=== PATIENT | male | born 1940 | race Caucasian/White ===

== ENCOUNTER 2017-01-02 05:14 | Day surgery (SDC) | payer BC ==
[2016-12-31 16:45] LABS: BASOPHILS 0.3 %; BASOPHILS ABSOLUTE 0.02 10/3/uL (0.0-0.16); EOSINOPHILS 1.4 %; EOSINOPHILS ABSOLUTE 0.09 10/3/uL (0.0-0.53); HEMATOCRIT 47.1 % (40.0-51.0); HEMOGLOBIN 15.7 g/dL (13.6-17.8); IMMATURE GRANULOCYTES 0.2 %; IMMATURE GRANULOCYTES ABSOLUTE 0.01 10/3/uL (0.0-0.11); LYMPHOCYTES 23.6 %; LYMPHOCYTES ABSOLUTE 1.47 10/3/uL (0.67-4.30); MEAN CORPUS HGB CONC 33.3 g/dL (32.0-36.0); MEAN CORPUSCULAR HEMOGLOB 29.8 pg (26.0-34.0); MEAN CORPUSCULAR VOLUME 89.5 fL (80-100); MEAN PLATELET VOLUME 10.7 fL (9.2-13.0); MONOCYTES 9.2 %; MONOCYTES ABSOLUTE 0.57 10/3/uL (0.21-1.20); NEUTROPHILS 65.3 %; NEUTROPHILS ABSOLUTE 4.06 10/3/uL (2.02-8.40); PLATELET COUNT 156 10/3/uL (150-400); RBC DISTRIBUTION WIDTH 14.1 % (12.0-16.0); RED CELL COUNT 5.26 10/6/uL (4.7-6.1); WHITE BLOOD CELLS 6.2 10/3/uL (4.5-10.5)
[2016-12-31 17:05] LABS: A/G RATIO 1.4 (0.7-1.9); ALBUMIN 3.8 G/DL (3.5-5.0); ALKALINE PHOSPHATASE 76 U/L (45-117); BUN (BLOOD UREA NITROGEN) 17 MG/DL (6-23); CALCIUM, SERUM 8.8 MG/DL (8.5-10.4); CHLORIDE, SERUM 106 MMOL/L (96-112); CO2 (CARBON DIOXIDE) 25 MMOL/L (24-34); CREATININE 0.93 MG/DL (0.70-1.30); GFR AFRICAN AMERICAN 93 ML/MIN (>=60); GFR NON AFRICAN AMERICAN 81 ML/MIN (>=60); GLOBULIN 2.8 G/DL (2.5-4.1); GLUCOSE, SERUM 110 MG/DL (60-99); POTASSIUM, SERUM 4.5 MMOL/L (3.5-5.3); SGOT(AST) 18 U/L (5-40); SGPT(ALT) 28 U/L (5-65); SODIUM, SERUM 141 MMOL/L (135-148); TOTAL BILIRUBIN 0.4 MG/DL (0-1.2); TOTAL PROTEIN 6.6 G/DL (6.0-8.5)
[~2017-01-02] VITALS: Ht 179.1 cm; Wt 129.3 kg
--- NOTE | ~2017-01-02 | OP ---
Record Of Operation [facility] [address] [place]. [address] NAME: RAFA BOYD : 44 STATUS : REG [facility]#: [id number] AGE: 76 ADM/REG DATE : 01/02/17 MR#: [id number] REPORT SERV DATE: 01/02/17 DICTATED BY: LIMA MARIE III DATE: 01/02/17 REPORT STATUS : Draft TRANSCRIBED BY: MODL DATE: 01/02/17 DATE OF PROCEDURE: 01/02/2017 PREOPERATIVE DIAGNOSIS: Biopsy-proven sarcoma of the left forehead. POSTOPERATIVE DIAGNOSIS: Biopsy-proven sarcoma of the left forehead. PROCEDURE: Wide local resection of sarcoma of the left forehead. SURGEON: Lima Marie M.D. ANESTHESIA: General with intubation. COMPLICATIONS: None. ESTIMATED BLOOD LOSS: Less than 5 mL. SPECIMENS: Sarcoma from left forehead and revised deep margin. DRAINS: None. LAP AND SPONGE COUNT: Correct x3. BRIEF HISTORY: This 76-year-old male presented with a biopsy-proven sarcoma of the left forehead. It was felt that wide local resection of this malignancy was indicated. This procedure, the risks, benefits, and alternatives, including but not limited to the risk for bleeding, infection, pain, swelling, scarring, deformity to the area, seroma formation, hematoma formation, nerve injury, chronic paresthesia, pain, numbness, neuralgia or neuroma, facial nerve injury, muscle weakness or paralysis which could be permanent muscles of the face, wound failure, wound dehiscence, possible need to return for wider excision, and unforeseen complications including deep venous thrombosis, pulmonary embolus, myocardial infarction, stroke, pneumonia, and were explained to the patient prior to the surgery. His questions were answered. He understood the risks and agreed to the surgery as planned. DESCRIPTION OF PROCEDURE: After being properly identified and after discussing the risks of surgery with the patient and family again in the preoperative area, and after identifying the lesion of concern with him and marking with a skin marker in the preoperative area, the patient was taken to the operating room and placed in the supine position on the operating room table. General anesthesia was administered. He was intubated without difficulty. The left forehead was prepped and draped sterilely in the usual fashion. After an appropriate "time-out" per JCAHO standards, an elliptical shaped horizontally oriented incision was made centered around the neoplasm. The incision was made so as to have at least a one-half to one centimeter margin around the tumor. The incision was continued through the subcutaneous tissue. The entire block of tissue was resected. At no point any neurovascular structures were encountered or injured. The specimen was oriented with sutures and sent to Pathology. The peripheral margins were all clear, but the deep margin was involved. Record Of Operation [address] [address] NAME: RAFA BOYD : 44 STATUS : REG [facility] PAT#: [id number] AGE: 76 ADM/REG DATE : 01/02/17 MR#: [id number] REPORT SERV DATE: 01/02/17 DICTATED BY: LIMA MARIE III DATE: 01/02/17 REPORT STATUS : Draft TRANSCRIBED BY: RAMÓN DATE: 01/02/17 For this reason, the deep margin was excised. This was labeled as a revised deep margin. The tissue was excised down to the skull. It was not possible to resect this deeper. The true margin was marked with ink. This was sent as revised deep margin to permanent pathology. Using sharp dissection, the skin and subcutaneous tissue around the defect was mobilized extensively to allow for closure of the wound. Hemostasis was assured. The subcutaneous tissue was closed with interrupted 3-0 Vicryl suture. The skin was closed with a running subcuticular 4-0 Monocryl stitch. The incision was injected with 0.5% Marcaine. Dermabond was applied. Anesthesia was reversed, and the patient was taken to the recovery room in stable condition. He tolerated the procedure well. His family was informed the results of the surgery. The patient will be discharged when stable and comfortable. His family was advised to keep the wound clean and dry for 48 hours, that he should not drive for two to three days after surgery or while using narcotics and that he should resume his usual medications. He was asked to return in two weeks for followup if any fever, chills, wound drainage, or other problems prior to that time. He was given a prescription for Percocet 7.5 one t.i.d., #12, as needed for pain, which he was advised not to use while driving. He was advised to monitor his glucose carefully for the next several days. RHJ/MODL Lima Marie III, M.D. / [id number] CC: Pascual Talbot III, MD
--- NOTE | ~2017-01-02 | PREOPHP ---
PreOp History and Physical [address] [place]. [address] NAME: RAFA BOYD : 44 STATUS : REG [facility]#: [id number] AGE: 76 ADM/REG DATE : 01/02/17 MR#: [id number] REPORT SERV DATE: 01/02/17 DICTATED BY: LIMA MARIE III DATE: 12/24/16 REPORT STATUS : Draft TRANSCRIBED BY: RAMÓN DATE: 12/24/16 HISTORY OF PRESENT ILLNESS: This 76-year-old male comes to the operating room for wide local resection of a biopsy-proven malignant sarcoma of the forehead. The patient complains of a nodular lesion over his left forehead. He noticed this several months ago. 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 PAST MEDICAL HISTORY: 1. Diabetes mellitus. 2. Hyperlipidemia. 3. Osteoarthritis. 4. Asthma. 5. Gastroesophageal reflux disease. 6. Obesity. 7. History of tobacco abuse. MEDICATIONS: Actos, metformin, nabumetone, aspirin, Zantac, Depo-Testosterone, Flomax, Flonase, potassium, Avodart, lisinopril, Lipitor. FAMILY HISTORY: Positive for heart disease. SOCIAL HISTORY: The patient has history of tobacco abuse. No history of alcohol use. He is . He is self-employed. ALLERGIES: NONE. OBJECTIVE: GENERAL: This is a large obese male, in no acute distress. He is alert oriented x3. VITAL SIGNS: Blood pressure 148/69, pulse 77, temperature 97.4. HEENT: Remarkable for 1-2 cm poorly defined nodular subcutaneous mass over the left forehead. NECK: Normal with no adenopathy. Supraclavicular area is normal with no adenopathy. LUNGS: Clear. CARDIAC: Normal. ABDOMEN: Soft. Nontender. 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 ASSESSMENT: 1. A 76-year-old male with biopsy-proven sarcoma of the left forehead. 2. Hyperlipidemia. 3. Diabetes mellitus. 4. Osteoarthritis. 5. Tobacco abuse. 6. Probable chronic lung disease secondary tobacco abuse. 7. Obesity. PreOp History and Physical [facility] [address] [address] NAME: RAFA BOYD : 44 STATUS : REG [facility]#: [id number] AGE: 76 ADM/REG DATE : 01/02/17 MR#: [id number] REPORT SERV DATE: 01/02/17 DICTATED BY: LIMA MARIE III DATE: 12/24/16 REPORT STATUS : Draft TRANSCRIBED BY: MODLoly DATE: 12/24/16 PLAN: The patient comes to the operating room now for resection of this mass. The procedure risks, benefits, and alternatives, including but not limited to the risk for bleeding, infection, pain, swelling, scarring, deformity of the area, seroma formation, hematoma formation, nerve injury, chronic paresthesia, pain, numbness, neuralgia or neuroma of the involved area of the face, nerve injuries, muscle weakness, or paralysis to the involved area, face possible need for wider excision, and unforeseen complications including deep venous thrombosis. Pulmonary embolus myocardial infarction stroke pneumonia and , have been explained the patient prior to surgery. His questions were answered. He understands the risks and agrees to surgery as planned. Review of systems, it should be noted the complains reflux, indigestion, joint pain, and swelling and right wrist pain. Kole/RAMÓN Lima Marie III, M.D. / [id number]
[~2017-01-02 05:14] MED LIST: ACTOS15 PO; ADVIL PM PO; ASAB PO; AVODART PO; FLOMAX4 PO; GLUCPH PO; KLOR-CON 1010 MEQ PO; LIPITOR20 PO; NABUMETONE750 MG PO; PRIN2.5 PO; ZANTAC150 MG PO
== END 2017-01-02 12:51 | disposition home or self-care (01) ==
LOC: SDC 05:14
PROVIDERS: Surgery
PROC: 0HB1XZX Excision of Face Skin, External Approach, Diagnostic (ICD-10-PCS; principal; 2017-01-02 06:45)
DX: D48.5 Neoplasm of uncertain behavior of skin (principal); E11.9 Type 2 diabetes mellitus without complications; E78.5 Hyperlipidemia, unspecified; M19.90 Unspecified osteoarthritis, unspecified site; J45.909 Unspecified asthma, uncomplicated; K21.9 Gastro-esophageal reflux disease without esophagitis; E66.9 Obesity, unspecified; E78.00 Pure hypercholesterolemia, unspecified; Z87.891 Personal history of nicotine dependence; Z79.899 Other long term (current) drug therapy; Z79.82 Long term (current) use of aspirin; Z82.49 Family history of ischemic heart disease and other diseases of the circulatory system; Z68.41 Body mass index [BMI] 40.0-44.9, adult; Z88.2 Allergy status to sulfonamides; Z98.890 Other specified postprocedural states; Z98.42 Cataract extraction status, left eye
CPT/HCPCS: 36415; 71020-PO; 80053; 82962; 85025; 88305; 88331; 88332; 93005; A9270-GY; J0330; J0690; J2250; J2405; J3010